=== PATIENT | female | born 2000 | race Caucasian/White ===

== ENCOUNTER 2023-05-27 13:27 | Outpatient (CLI) | payer BC, SELFPAY ==
[2023-05-27 19:34] LABS: Free T4 Free Thyroxine 0.93 ng/mL (0.78-2.19)
== END 2023-05-27 13:28 | disposition home or self-care (01) ==
LOC: ANHGOSHLAB 13:31
PROVIDERS: PCP Emergency Medicine; Visit Provider Nurse Practitioner Family
DX: E03.9 Hypothyroidism, unspecified (principal)
CPT/HCPCS: 36415; 84439; 84443

== ENCOUNTER 2023-12-23 15:48 | Outpatient (CLI) | payer BC, MEDICAID, SELFPAY ==
[2023-12-23 19:42] LABS: Free T4 Free Thyroxine 1.13 ng/mL (0.78-2.19)
[2023-12-23 19:47] LABS: Thyroid Stimulating Hormone 0.811 uIU/mL (0.465-4.680); Total Triiodothyronine (T3) 1.06 NG/ML (0.97-1.69)
[2023-12-26 17:22] LABS: Triiodothyronine T3 Free 3.2 pg/mL (2.3-4.2)
== END 2023-12-23 15:49 | disposition home or self-care (01) ==
LOC: ANHGOSHLAB 15:49
PROVIDERS: PCP Emergency Medicine; Visit Provider Emergency Medicine
DX: E03.9 Hypothyroidism, unspecified (principal)
CPT/HCPCS: 36415; 84439; 84443; 84480; 84481

== ENCOUNTER 2024-03-23 15:14 | Outpatient (CLI) | payer BC, MEDICAID, SELFPAY ==
[2024-03-23 19:46] LABS: Free T4 Free Thyroxine 1.42 ng/mL (0.78-2.19)
[2024-03-23 20:12] LABS: Thyroid Stimulating Hormone 0.412 uIU/mL (0.465-4.680); Total Triiodothyronine (T3) 1.24 NG/ML (0.97-1.69)
== END 2024-03-23 15:15 | disposition home or self-care (01) ==
LOC: ANHGOSHLAB 15:16
PROVIDERS: PCP Emergency Medicine; Visit Provider Emergency Medicine
DX: E03.9 Hypothyroidism, unspecified (principal)
CPT/HCPCS: 36415; 84439; 84443; 84480

== ENCOUNTER 2024-03-30 15:21 | Outpatient (CLI) | payer BC, MEDICAID, SELFPAY ==
--- NOTE | ~2024-03-30 | US_ITS ---
EXAMINATION: US thyroid DATE: 03/30/2024 15:36 INDICATION: Nontoxic goiter, unspecified. TECHNIQUE: Multiple ultrasound images of the thyroid were obtained. COMPARISON: None. FINDINGS: The right thyroid lobe measures 5.1 x 1.1 x 1.2 cm. The left thyroid lobe measures 3.9 x 0.7 x 1.1 c m. There is normal echotexture and echogenicity throughout the thyroid gland. No discrete nodules id entified. Normal vascular flow is present. IMPRESSION: 1. Normal thyroid. Reviewed, dictated and finalized at location A. IMPRESSION: 1. Normal thyroid.
== END 2024-03-30 15:22 ==
LOC: MICIMG 15:22
PROVIDERS: PCP Emergency Medicine; Visit Provider Emergency Medicine
DX: E04.9 Nontoxic goiter, unspecified (principal)
CPT/HCPCS: 76536

== ENCOUNTER 2024-05-04 10:57 | Outpatient (CLI) | payer BC, MEDICAID, SELFPAY ==
[2024-05-04 14:20] LABS: Basophils Absolute Auto 0.1 K/mm3 (0.0-0.1); Basophils Percent Auto 1.3 % (0.2-1.2); Eosinophils Absolute Auto 0.2 K/mm3 (0-0.3); Eosinophils Percent Auto 6.4 % (0-4.4); Hematocrit 39.6 % (37.0-47.0); Hemoglobin 12.9 g/dL (12.0-15.0); Immature Granulocyte Absolute 0.01 K/mm3 (0.00-0.031); Immature Granulocyte Percent A 0.3 % (0-0.5); Lymphocytes Percent Auto 34.6 % (18.3-44.2); Mean Corpuscular HGB Conc 32.6 g/dl (32-36); Mean Corpuscular Hemoglobin 29.2 pg (26-34); Mean Corpuscular Volume 89.6 fl (80-100); Mean Platelet Volume 10.6 fl (7.4-10.4); Monocytes Absolute Auto 0.5 K/mm3 (0.1-0.6); Monocytes Percent Auto 14.4 % (2.6-8.5); Neutrophils Absolute Auto 1.6 K/mm3 (1.3-6.7); Platelet Count Result 231 k/mm3 (150-375); Red Blood Count 4.42 M/mm3 (4.2-5.4); Red Cell Distribution Width 12.5 % (11.5-14.5); White Blood Count 3.8 K/mm3 (4.5-10.0)
[2024-05-04 14:36] LABS: Alanine Aminotransferase 13 U/L (6-35); Albumin Level 4.6 g/dL (3.5-5.1); Alkaline Phosphatase 55 U/L (38-126); Anion Gap 9 mmol/L (4-12); Aspartate Amino Transferase 43 U/L (14-36); Blood Urea Nitrogen 11 mg/dL (7-17); CRP < 0.5 mg/dL (<1.0); Calcium 9.6 mg/dL (8.4-10.2); Carbon Dioxide 30 mmol/L (22-30); Chloride 100 mmol/L (98-107); Estimated Glomerular Filt Rate > 60; Glucose 61 mg/dL (65-110); Potassium 3.9 mmol/L (3.4-5.0); Sodium 139 mmol/L (137-145)
[2024-05-04 15:03] LABS: Erythrocyte Sedimentation Rate 11 mm/hr (0-20)
[2024-05-04 17:31] LABS: Vitamin D 25 Hydroxy 37.7 ng/mL
[2024-05-04 19:11] LABS: Iron 112 ug/dL (37-170)
[2024-05-06 01:13] LABS: Zinc 52 mcg/dL (60-130)
[2024-05-07 09:34] LABS: Thyroid Peroxidase Antibodies <1 IU/mL (<9)
== END 2024-05-04 10:58 | disposition home or self-care (01) ==
LOC: ANHGOSHLAB 10:59
PROVIDERS: PCP Emergency Medicine; Visit Provider Emergency Medicine
DX: K12.0 Recurrent oral aphthae (principal); E03.9 Hypothyroidism, unspecified
CPT/HCPCS: 36415; 80053; 82306; 82607; 82746; 83540; 84630; 85025; 85652; 86038; 86039; 86140; 86376; 86800

== ENCOUNTER 2025-04-08 10:17 | Outpatient (CLI) | payer BC, SELFPAY ==
--- OUTSIDE RECORDS SUMMARY | 2025-04-08 10:23 | XMS_ITS | Encounter Summary ---
Author Organization [facility] Address [address] [place] [address] Care Team Providers Care Grades 1 Thru 6 Visiting Teacher Name Role Phone Unavailable Primary Care Provider Unavailabl e Encounter Details Date Type Department Care Team (Late Contact Info) Description 03/01/2025 Results Follow-Up [facility] BATH ATTENDANT [facility] [address] [address] [place] [address] Yudelka Shearer DO [address] [place], [place] [address] [place] [address] CERV/VAG CYTO AGE BASED SCREEN PAP Social History Tobacco Use Types Packs/Day Years Used Date Smoking Tobacco: Never Smokeless Tobacco: Never Alcohol Use Standard Drinks/Week Comments Never 0 (1 standard drink = 0.6 oz pur e alcohol) Feeling Safe Answer Date Recorded Are you in a relationship wi th someone who hurts you emotionally and/or physically? Unable to obtain 09/15/2023 Comments No Sex and Gender Information Value Date Recorded Sex Assigned at Not on file Legal Sex Female 11:53 AM CDT Gender Identity Not on file Sexual Orientation Not on file documented as of this encounter Plan of Treatment Upcoming Encounters Date Type Department Care Team (Late Contact Info) Description 04/08/2025 10:40 AM CDT Office Visit [facility] BATH ATTENDANT [facility] [address] [address] [place] [address] Tammy Frey NP [address] [facility] [address] [place] [address] 03/03/2026 4:20 PM CDT Office Visit [facility] BATH ATTENDANT [facility] [place] [address] [facility] [address] [place] [address] Yudelka Shearer, [address] [facility] [address] [place] [address] documented as of this encounter Visit Diagnoses Not on filedocumented in this encounter
--- OUTSIDE RECORDS SUMMARY | 2025-04-08 10:23 | XMS_ITS | Clinical Summary ---
Author Organization [facility] Address [address] [place] [address] Care Team Providers Care Behavioral Modification Assistant Name Role Phone Unavailable Primary Care Provider Unavailabl e Source Comments [facility],non-owned Affiliates and Associated Physician Practices is amultiple site organization consisting of ambulatory clinics and hospital sitesin [place], [place], [place] and [place]. This disclosure is being madepursuant to the Care Everywhere program and may not contain all information available regarding this patient. Last updated 18.[facility] [place] Allergies No known active allergies Medications * Be aware that medications may not be up to date on this document. Alwaysverify current medications with the patient. No known medications Immunizations Immunization Administration Dates Next Due DTaP VACCINE IM (6wk-6yrs) 06/03/2006,,05/20/2001,03/17,01/09/2001 HEP B VACCINE, PED/ADOL 08/13/2001,2000, HIB-PRP-OMP 3 DOSE 05/25/2002, 1,03/17/2001,01/09 Human Papilloma Virus Richard valent Vaccine 01/31/2015,09/26/2014,07/26/2014 INFLUENZA VACCINE, QUADR. (F LUZONE; FLULAVAL; FLUARIX; AFLURIA QUADRIVALENT; 6MO+), 0.5 ML (IIV4) 08/17/2015,07/26/2014 MENINGOCOCCAL ACWY (MCV4P) VAC IM 01/31/2012 MENINGOCOCCAL ACWY MENVEO 06/25/2018 MMR 06/03/2006,02/12/2002 PNEUMOCOCCAL PCV7 CONJ, PEDS 02/12/2002, 05/20/2001,03/17/2001,01/09 POLIO IPV 06/03/2006, 2,03/17/2001,01/09 TDAP (7yrs+) 01/31/2012 VARICELLA 01/31/2012,11/17/2001 Social History Tobacco Use Types Packs/Day Years Used Date Smoking Tobacco: Never Assessed Comments No Sex and Gender Information Value Date Recorded Sex Assigned at Not on file Legal Sex Female 12:03 PM CDT Gender Identity Not on file Sexual Orientation Not on file Last Filed Vital Signs Vital Sign Reading Time Taken Comments Blood Pressure 108/70 05/02/2021 11:16 AM CDT Pulse 98 05/02/2021 11:16 AM CDT Temperature 36.7 C (98.1 F) 05/02/2021 11:16 AM CDT Respiratory Rate 16 05/02/2021 11:16 AM CDT Oxygen Saturation 97% 05/02/2021 11:16 AM CDT Inhaled Oxygen Concentration - - Weight 44.5 kg (98 lb) 05/02/2021 11:16 AM CDT Height 157.5 cm (5' 2) 05/02/2021 11:16 AM CDT Body Mass Index 17.92 05/02/2021 11:16 AM CDT Plan of Treatment Health Maintenance Due Date Last Done Comments HIV SCREENING 2015 CHLAMYDIA/GONORRHEA SCREENING 2016 HEPATITIS C SCREENING 11/08/2018 PAP SMEAR 2021 DTAP/TDAP/TD VACCINES (7 - Td or Tdap) 01/30/2022 01/31/2012, 06/03/2006, 05/25/2002, Additional history exists COVID-19 VACCINE ( season) 2024 DEPRESSION SCREENING 09/29/2024 INFLUENZA VACCINE (#1) 2025 08/17/2015, 2013 ZOSTER VACCINE (1 of 2) 2050 HEPATITIS B VACCINE Completed 08/13/2001, 2000, 2000 PNEUMOCOCCAL VACCINE Completed 02/12/2002, 05/20/2001, 03/17/2001, Additional history exists HIB VACCINE Completed 05/25/2002, 04/30, 03/17/2001, Additional history exists HPV VACCINE Completed 01/31/2015, 08/30, 07/26/2014 MENINGOCOCCAL GROUPS A/C/Y/W VACCINE Completed 06/25/2018, 01/31/2012 MENINGOCOCCAL (Group B) VACCINE SHARED DECISION-MAKING Aged Out No longer eligible based on patient's age to complete this topic
--- OUTSIDE RECORDS SUMMARY | 2025-04-08 10:23 | XMS_ITS | Referral Summary ---
Author Organization [facility] [address] Address [address] [place] [id number] Care Team Providers Care Laborer Plumbing Name Role Phone No, Physician Primary Care Provider [phone] Allergies No known active allergies Medications atomoxetine (STRATTERA) 60 mg capsule 25 mg daily 2 Active levothyroxine (SYNTHROID) 50 mcg tablet Take 1 tablet (50 mcg total) by mouth hand sprayer before breakfast 30 tablet 1 3 Active Additional Information Patient taking differently: 25 mcgoral Daily (early AM), Reported on 09/15/2024 al & mag hydroxide with simethicone-dip henhydramine-li docaine (MAGIC MOUTHWASH) suspension 1-1-1 Swish and spit 10 mL every 4 (four) hours as needed (mouth) 250 mL 4 Active Active Problems Problem Noted Date Diagnosed Date Encounter for supervision of normal in first trimester 02/21/2023 Overview (03/25/2023): Dated by 8w6d PNL: O+/I/-/-, NR GC/CT: neg UCx: neg Pap: normal [address] Sinclair per pt, requested today Genetics: declined MOF/MOC: to be addressed at a later visit Hypothyroidism 02/21/2023 Overview (02/27/2023): On levothyroxine 0.025 mg daily. Pt states this is managed by her psychiatrist. TFTs nml with NOB labs. Will continue to monitor throughout . ADHD 02/21/2023 Overview (02/21/2023): Previously on Strattera but discontinued when she discovered she was . Marijuana use 02/21/2023 Overview (02/21/2023): Pt states she discontinued when she discovered she was . S/p counseling and continued cessation encouraged. Vaping nicotine dependence, non-tobacco product 02/21/2023 Overview (02/21/2023): Pt states she discontinued when she discovered she was . S/p counseling and continued cessation encouraged. Social History Tobacco Use Types Packs/Day Years Used Date Smoking Tobacco: Never Smokeless Tobacco: Never Overall Financial Resource Strain (CARDIA) Answe r Date Recorded How hard is it for you to pa y for the very basics like food, housing, medical care, and heating? Somewhat hard 03/25/2023 Hunger Vital Sign Answer Date Recorded Within the past 12 months, y ou worried that your food would run out before you got the money to buy more. Sometimes true Within the past 12 months, t he food you bought just didn't last and you didn't have money to get more. Never true PRAPARE - Transportation Answer Date Re corded In the past 12 months, has l ack of transportation kept you from medical appointments or from getting medications? No 02/28 In the past 12 months, has l ack of transportation kept you from meetings, work, or from getting things needed for daily living? No 03/25/2023 Housing Stability Vital Sign Answer Hussein e Recorded In the last 12 months, was t here a time when you were not able to pay the mortgage or rent on time? Yes 03/25/2023 In the last 12 months, how many places have you lived? 1 03/25/2023 In the last 12 months, was t here a time when you did not have a steady place to sleep or slept in a retirement (including now)? No 03/25/2023 Comments Unknown Sex and Gender Information Value Date Recorded Sex Assigned at Not on file Legal Sex Female 7:19 PM MOTOR VEHICLE LECTURER Gender Identity Not on file Sexual Orientation Not on file Occupation Industry Job Start Date Job End Date Not on file Not on file Not on file Not on file Last Filed Vital Signs Vital Sign Reading Time Taken Comments Blood Pressure 100/60 11/10/2024 3:17 PM MOTOR VEHICLE LECTURER Pulse 106 11/10/2024 3:17 PM MOTOR VEHICLE LECTURER Temperature 36.6 C (97.9 F) 11/10/2024 3:17 PM MOTOR VEHICLE LECTURER Respiratory Rate 20 11/10/2024 3:17 PM MOTOR VEHICLE LECTURER Oxygen Saturation 98% 11/10/2024 3:17 PM MOTOR VEHICLE LECTURER Inhaled Oxygen Concentration - - Weight 42.2 kg (93 lb) 11/10/2024 3:17 PM MOTOR VEHICLE LECTURER Height 157.5 cm (5' 2.01) 10/05/2024 3:00 PM CS T Body Mass Index 17.01 10/05/2024 3:00 PM MOTOR VEHICLE LECTURER Plan of Treatment Not on file Procedures Procedure Name Priority Date/Time Associated Diagnosis Comments HEPATITIS C ANTIBODY Routine 02/21/2023 11:42 AM CDT care, subsequent , first trimester 8 weeks gestation of N. GONORRHOEAE/C. TRACHOMATIS AMPLIFICATION Routine 02/21/2023 11:42 AM CDT Screen for sexually transmitted diseases from Last 3 Months or Most Recently Relevant to Health Maintenance Results * N. gonorrhoeae/C. trachomatis Amplification Endocervical (02/21/2023 11:42 AM CDT) C. trachomatis Not detected Not detected MATT NORRIS N. gonorrhoeae Not detected Not detected MATT NORRIS Comment: Testing performed by the [facility]. This assay detects Chlamydia trachomatis and Neisseria gonorrhoeae by nucleic acid amplification testing (NAAT). This test is approved by the [place] Food and Drug Administration and the performance characteristics have been verified by the laboratory. The performance characteristics of this test have not been evaluated in women or individuals less than 16 years of age. Endocervical (None) 02/22/20 11:42 AM CDT 02/21/2023 6:00 PM CDT Dona Dean DO LAB MICROBIOLOGY - [facility] ORDERABLES Final Result Performing Organization Address City/[facility] Co de Phone Number MATT NORRIS [phone] Department [place] [address] * Hepatitis C antibody (02/21/2023 11:42 AM CDT) Hep C Ab Nonreactive Nonreactive MATT NORRIS Comment: Interpretive Data Nonreactive: Antibodies to HCV not detected. Does NOT exclude the possibility of recent exposure to HCV. Equivocal: Equivocal for HCV antibodies. Supplemental molecular testing will be automatically performed to determine infection status in accordance with current CDC screening recommendations. Reactive: Positive for HCV antibodies. This may represent current or past HCV infection. Supplemental molecular testing will be automatically performed to determine current infection status in accordance with current CDC screening recommendations. Interpretive data was last revised on 2019. Blood 02/21/2023 11:4 2 AM CDT 02/21/2023 6:00 PM CDT [facility] Linda Dean DO LAB MICROBIOLOGY - GENE RAL ORDERABLES Final Result Performing Organization Address City/[facility] Co de Phone Number MATT NORRIS [phone] Department [place] [address] from Last 3 Months or Most Recently Relevant to Health Maintenance Insurance CHOICE [facility] [place] Care Teams Laborer Plumbing Relationship Specialty Start Date End Date No, Physician PCP - General 04/22/22
--- OUTSIDE RECORDS SUMMARY | 2025-04-08 10:23 | XMS_ITS | Clinical Summary ---
Author Organization [facility] [address] Address [address] [place] [id number] Care Team Providers Care Childbirth Educator Name Role Phone No, Physician Primary Care Provider [phone] Allergies No known active allergies Medications atomoxetine (STRATTERA) 60 mg capsule 25 mg daily 2 Active levothyroxine (SYNTHROID) 50 mcg tablet Take 1 tablet (50 mcg total) by mouth carpenter mate before breakfast 30 tablet 1 3 Active [...] . S/p counseling and continued cessation encouraged. Surgical History Surgery Date Site/Laterality Comments WISDOM TOOTH EXTRACTION RHINOPLASTY Medical History Medical History Date Comments Hypothyroidism Adhd Vitamin D deficiency Social History Tobacco Use Types Packs/Day Years [...] place to sleep or slept in a assisted (including now)? No 03/25/2023 Comments Unknown Sex and Gender Information Value Date Recorded Sex Assigned at Not on file Legal Sex Female 7:19 PM DIRECTOR RETIREMENT Gender Identity Not on file Sexual Orientation Not on file Occupation Industry Job Start Date Job End Date Not on file Not on file Not on file Not on file Obstetrics History Para Term AB IAB SAB Ectopic Multiple Livin g Live Births 2 1 Date Outcome GA Total Labor Labor/2nd/3rd Weight Sex Type Anes PTL Josee A1 A5 Name Clin 2021 AB 7w0d Last Filed Vital Signs Vital Sign Reading Time Taken Comments Blood Pressure 100/60 11/10/2024 3:17 PM DIRECTOR RETIREMENT Pulse 106 11/10/2024 3:17 PM DIRECTOR RETIREMENT Temperature 36.6 C (97.9 F) 11/10/2024 3:17 PM DIRECTOR RETIREMENT Respiratory Rate 20 11/10/2024 3:17 PM DIRECTOR RETIREMENT Oxygen Saturation 98% 11/10/2024 3:17 PM DIRECTOR RETIREMENT Inhaled Oxygen Concentration - - Weight 42.2 kg (93 lb) 11/10/2024 3:17 PM DIRECTOR RETIREMENT Height 157.5 cm (5' 2.01) 10/05/2024 3:00 PM CS T Body Mass Index 17.01 10/05/2024 3:00 PM DIRECTOR RETIREMENT Plan of Treatment Health Maintenance Due Date Last Done Comments Cervical Cancer Screening 2000 Depression Screening 2000 Regular Well Visit/Exam 18-64 2018 Chlamydia and Gonorrhea (GC/ CT) Screening 02/22/2024 02/21/2023 Covid-19 Vaccine (2023-10 5 season) 2024 09/27/2021 Influenza Vaccine (Season Ended) 2025 08/06/2023, 08/17/2015, 07/26/2014, Additional history exists DTaP/Tdap/Td Vaccine (8 - Td or Tdap) 08/06/2033 08/06/2023, 01/31/2012, 06/03/2006, Additional history exists Hepatitis B Screening Completed 08/13/2001 , 2000, 2000 Pneumococcal vaccine <65 Completed 002, 05/20/2001, 03/17/2001, Additional history exists Varicella Vaccines Completed 01/31/2012, 11/17/2001 HPV Vaccines Completed 01/31/2015, 08/30, 07/26/2014 Hepatitis C Screening Completed 02/21/2023 Procedures Procedure Name Priority Date/Time Associated Diagnosis [...] C. trachomatis Not detected Not detected MATT N. gonorrhoeae Not detected Not detected MATT NORRIS Comment: Testing performed by the [facility]. This assay detects Chlamydia trachomatis and Neisseria gonorrhoeae by nucleic acid amplification testing (NAAT). This test is approved by the [facility] Food and Drug Administration and the performance characteristics have been verified by the laboratory. The performance characteristics of this test have not been evaluated in women or individuals less than 16 years of age. Endocervical (None) 02/22/20 11:42 AM CDT 02/21/2023 6:00 PM CDT Dona Dean DO LAB MICROBIOLOGY - [facility] ORDERABLES Final Result MATT [address] Department of Laboratories [place], [place] [id number] * Hepatitis C antibody (02/21/2023 11:42 AM CDT) Hep C Ab Nonreactive Nonreactive MATT Comment: Interpretive Data Nonreactive: Antibodies to HCV [...] 2 AM CDT 02/21/2023 6:00 PM CDT Dona Dean DO LAB MICROBIOLOGY - GENE RAL ORDERABLES Final Result Performing Organization Address City/State/ZIP Co tn Phone Number MATT [phone] [facility] Department [place] [address] from Last 3 Months or Most Recently Relevant to Health Maintenance [place] Care Teams Childbirth Educator Relationship Specialty Start Date End Date No, Physician PCP - General 04/22/22
--- OUTSIDE RECORDS SUMMARY | 2025-04-08 10:23 | XMS_ITS | Clinical Summary ---
Author Organization [facility] Address [address] [place] [address] Care Team Providers Care Powerhouse Electrician Apprentice Name Role Phone Unavailable Primary Care Provider Unavailabl e Allergies No known active allergies Medications levothyroxine 50 mcg tablet Take 50 mcg by mouth daily in the morning. Active ergocalciferol , vitamin D2, (VITAMIN D ORAL) 1,000 Int'l Units/mL daily. 3 Active VIT-IRON FUM-FOLIC AC ORAL Take by mouth. Activ e acetaminophen (TYLENOL) 325 mg tablet Take 2 Tablets (650 mg) by mouth every 6 hours. 3 Active Additional Information Patient not taking.Reported on 02/23/2025 ibuprofen (MOTRIN) 600 mg tablet Take 1 Tablet (600 mg) by mouth every 6 hours as needed for Mild Pain. 60 Tablet 09/18/2023 9:07 AM ATTENDANT COIN OPERATED LAUNDRY 3 Active Additional Information Patient not taking.Reported on 02/23/2025 modified lanolin (LANOLIN HFA) 100 % Cream Apply to affected area see administration instructions. 3 Active Additional Information Patient not taking.Reported on 02/23/2025 atomoxetine (STRATTERA) 25 mg capsule 1 Capsule. Active dexAMETHasone (DECADRON) 0.5 mg/5 mL Solution 5 Active Hospital, Clinic, or Other Facility Administered Medication Ordered Dose Route Frequency Start Date End Date Status levonorgestreL (MIRENA) 21 mcg/24hr (up to 8 yrs) 52 mg intrauterine device 1 DeviceIndications: Encounter for IUD insertion 1 Device Intrauterine INTRA-PROCEDURE ONCE 03/11/2025 5 Ended Active Problems Problem Noted Date Diagnosed Date Intact amniotic membranes du ring in third trimester 09/02/2023 Encounters Date Type Department Care Team Description 03/15/2025 External Device Data STL ABSTRACTION Provider, Abstract 03/11/2025 10:10 AM CDT Procedure visit [facility] INFRASTRUCTURE ENGINEER [facility] [address] [address] [place] [address] Eusebio De Leon MD Encounter for IUD insertion (Primary Dx) 03/04/2025 Telephone [facility] Women's Health Clinical Support [address] [place] [phone] Beverly Justice RN Question 03/01/2025 External Device Data STL ABSTRACTION Provider, Abstract 03/01/2025 External Device Data STL ABSTRACTION Provider, Abstract 03/01/2025 Results Follow-Up [facility] INFRASTRUCTURE ENGINEER [facility] [address] [address] [place] [address] Yudelka Shearer DO CERV/VAG CYTO AGE BASED SCREEN PAP 02/23/2025 12:50 PM CDT Office Visit [facility] INFRASTRUCTURE ENGINEER [facility] [address] [address] [place] [address] Yudelka Shearer DO Encounter for gynecological examination without abnormal finding (Primary Dx); Screening for cervical cancer; Screening for HPV (human papillomavirus); Screening for venereal disease (VD) from Last 3 Months Immunizations Immunization Administration Dates Next Due (ABRYSVO)(60 YR UP/GA 32-36 WKS) RSV, BIVALENT, PROTEIN SUBUNIT RSVPREF, DILUENT RECONSTITUTED, 0.5 ML, PF 08/13/2023 (ADACEL/BOOSTRIX)(10 YR UP) TDAP VACCINE, 0.5ML, IM 08/06/2023 INFLUENZA VACCINE QUADRIVALENT 6 MOS UP PF IM Family History Medical History Relation Name Comments Depression Father Fletcher Mental illness Father Fletcher Stroke Maternal Grandfather Edward Asthma Mother Lorena Osteoporosis Mother Lorena Hypertension Paternal Grandmother Lindsay Relation Name Status Comments Father Fletcher Maternal Grandfather Vinny Mother Lorena Alive Paternal Grandmother Lindsay Alive Social History Tobacco Use Types Packs/Day Years Used Date Smoking Tobacco: Never Smokeless Tobacco: Never Tobacco Cessation:Counseling Given: Not Answered Alcohol Use Standard Drinks/Week Comments Never 0 [...] Sign Reading Time Taken Comments Blood Pressure 118/60 03/11/2025 10:20 AM CDT Pulse 74 09/18/2023 7:57 AM ATTENDANT [employer]PER[employer] LAUNDRY Temperature 36.5 C (97.7 F) 09/18/2023 7:57 AM ATTENDANT COIN OPERATED LAUNDRY Respiratory Rate 16 09/18/2023 7:57 AM ATTENDANT COIN OPERATED LAUNDRY Oxygen Saturation 100% 09/16/2023 10:55 AM ATTENDANT COIN OPERATED LAUNDRY Inhaled Oxygen Concentration - - Weight 41.7 kg (92 lb) 03/11/2025 10:20 AM CDT Height 157.5 cm (5' 2) 03/11/2025 10:20 AM CDT Body Mass Index 16.83 03/11/2025 10:20 AM CDT Plan of Treatment Upcoming Encounters Date Type Department Care Team (Late st Contact Info) Description 04/08/2025 10:40 AM CDT Office Visit [facility] INFRASTRUCTURE ENGINEER [facility] [address] [address] [place] [address] Tammy Frey NP [address] [facility] [address] [facility] [place] [address] 03/03/2026 4:20 PM CDT Office Visit [facility] INFRASTRUCTURE ENGINEER [facility] [address] [facility] [address] [place] [address] Yudelka Shearer DO [address] [place] [address] Health Maintenance Due Date Last Done Comments HPV/Cotest (21-29) 2021 INFLUENZA VACCINE (#1) 2025 , 08/17/2015, 07/26/2014 CERVICAL CANCER SCREENING 02/24/2028 PAP SMEAR 02/24/2028 02/23/2025 DTAP/TDAP/TD VACCINES (8 - T d or Tdap) 08/06/2033 08/06/2023, 01/31/2012, 06/03/2006, Additional history exists HEPATITIS B VACCINES Completed 08/13/2001, 2000, 2000 HPV VACCINES Completed 01/31/2015, 08/30, 07/26/2014 Preventative Visit- Commercial Completed 02/23/2025 Procedures Procedure Name Priority Date/Time Associated Diagnosis Comments GA INSERTION INTRAUTERINE DEVICE IUD Routine 03/11/2025 10:10 AM CDT Encounter for IUD insertion CERV/VAG CYTO AGE BASED SCREEN PAP Routine 02/23/2025 1:20 PM CDT Screening for cervical cancer from Last 3 Months Results * GA INSERTION INTRAUTERINE DEVICE IUD (03/11/2025 10:10 AM CDT) Narrative [facility] JAYLYN Perry [address] [address] - 03/11/2025 10:10 AM CDT Eusebio De Leon MD 03/13/2025 9:13 PM IUD Insertion Date/Time: 03/11/2025 10:10 AM Performed by: Eusebio De Leon MD Authorized by: Eusebio De Leon MD Consent: Consent obtained: Verbal and written Consent given by: Patient Procedure risks and benefits discussed: yes Patient questions answered: yes Patient agrees, verbalizes understanding, and wants to proceed: yes Educational handouts given: yes Instructions and paperwork completed: yes Procedure: Pelvic exam performed: yes Negative GC/chlamydia test: yes Negative urine test: no Negative serum test: no Cervix cleaned and prepped: yes Speculum placed in vagina: yes Tenaculum applied to cervix: yes Uterus sounded: yes Uterus sound depth (cm): 8 IUD inserted with no complications: yes IUD type: Mirena Strings trimmed: yes Post-procedure: Patient tolerated procedure well: yes Patient will follow up after next period: yes Comments: The procedure for Mirena IUD insertion explained to patient. Risks and benefits discussed. Questions answered. Consent was obtained. The patient was placed in the dorsolithotomy position. Bimanual examination revealed a normal-sized retroverted uterus. No adnexal masses or tenderness noted. A speculum was placed in the vagina. The cervix was cleansed with Betadine. A single-tooth tenaculum was used to grasp the anterior lip of the cervix. The uterus sounded to 8 cm. The Mirena IUD was inserted in the uterine cavity without difficulty. The applicator was removed. The strings were trimmed to 2 to 3 cm. The tenaculum was removed and the anterior lip of the cervix and hemostasis was noted. The patient tolerated the procedure well. Eusebio De Leon MD PROCEDURE/MINOR SURGICAL ORDERAB LES Final Result Performing Organization Address City/State/[facility] Co de Phone Number [address]# [id number] [address] [place] [address] * CERV/VAG CYTO AGE BASED SCREEN PAP (02/23/2025 1:20 PM CDT) COMMENT (PAP): [facility] Comment: This order for age-based cervical cancer and STI screening follows ACOG guidelines(PB 168, 140, QGW093). See individual assays for performing site location. CLINICAL INFORMATION [facility] Comment:None given LAST MENSTRUAL PERIOD [facility] Comment:NONE GIVEN PREV PAP: [facility] Comment:NONE GIVEN PREV BX: [facility] [place] [facility] Comment:NONE GIVEN SOURCE [facility] [place] [facility] Comment:Endocervix ADEQUACY: [facility] Comment: Satisfactory for evaluation. Endocervical/transformation zone component present. Age and/or menstrual status not provided PAP INTERP [facility] Comment: Cytology Results: Negative for intraepithelial lesion or malignancy. CYTOLOGY INFECTION [facility] [place] [facility] Comment: Fungal organisms morphologically consistent with Beatrice spp. COMMENT (PAP TEST) [facility] Comment: This Pap test has been evaluated with computer assisted technology. [facility]ENSING DIRECTOR: [facility] Comment: TEJA, CT(ASCP) CT screening location: [place] [address] [place] [address] EXPLANATORY NOTE [facility] Comment: EXPLANATORY NOTE: The Pap is a screening test for cervical cancer. It is not a diagnostic test and is subject to false negative and false positive results. It is most reliable when a satisfactory sample, regularly obtained, is submitted with relevant clinical findings and history, and when the Pap result is evaluated along with historic and current clinical information. CHLAMYDIA TRACHOMATIS RNA, TMA, UROGENITAL NOT DETECTED NOT DETECTED [facility] NEISSERIA GONORRHOEAE RNA, TMA, UROGENITAL NOT DETECTED NOT DETECTED [facility] COMMENT INFECTIOUS DISEASE [facility] Comment: The analytical performance characteristics of this assay, when used to test SurePath(TM) specimens have been determined by [facility]. The modifications have not been cleared or approved by the FDA. This assay has been validated pursuant to the CLIA regulations and is used for clinical purposes. For additional information, please refer to https://education.[employer]/faq/ATM916 (This link is being provided for information/ educational purposes only.) Test Performed at: [address] [place] [address] Brandin MIRANDA Genital SWAB OF ENDOCERVIX / Unknown 02/23/2025 1:20 PM CDT 02/24/2025 7:13 PM CDT us Yudelka Shearer DO PATHOLOGY/CYTOLOGY ORDERABLES Final Result [facility] [phone] [address] [place] [address] from Last 3 Months Insurance BCBS BLUE ACCESS/TRUE BLUE PPO RX [employer] Commercial Advance Directives For more information, please contact: [phone] * Full Code (Latest Code Status on File) Date Activated Date Inactivated Comments 09/16/2023 4:51 PM 09/18/2023 5:06 PM * Full Code Date Activated Date Inactivated Comments 09/15/2023 1:10 PM 09/16/2023 4:51 PM * Full Code Date Activated Date Inactivated Comments 09/15/2023 8:17 AM 09/15/2023 1:10 PM * Full Code Date Activated Date Inactivated Comments 09/02/2023 7:41 PM 09/02/2023 11:52 PM
--- OUTSIDE RECORDS SUMMARY | 2025-04-08 10:23 | XMS_ITS | Clinical Summary ---
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 Gender Identity Not on file Sexual Orientation Not on file Plan of Treatment Health Maintenance Due Date Last Done Comments Hepatitis C Virus (HCV) Screening 2000 Meningococcal B Immunization (1 of 2 - Standard) 2016 Pap Smear 2021 Influenza Immunization (#1) 05/30/202407/30, 07/26/2014, 07/22/2013, Additional history exists SARS-COV-2 Immunization ( season) 2024 09/27/2021 Respiratory Syncytial Virus (RSV) Immunization (Adult) (1 - 1-dose 75+ series) 2075 Hepatitis B Immunization Completed 001, 2000, 2000 Pneumococcal Immunization Combined Aged Out 02/12/2002, 05/20/2001, 03/17/2001, Additional history exists No longer eligible based on patient's age to complete this topic DTaP/Tdap/Td Immunization Discontinued 2011, 06/03/2006, 05/25/2002, Additional history exists TdaP Immunization Completed 01/31/2012 Human Papillomavirus (HPV) Immunization Completed 01/31/2015, 09/26/2014, 07/26/2014 Meningococcal Immunization (ACWY) Completed 06/25/2018, 01/31/2012 Rotavirus Immunization Aged Out No lo nger eligible based on patient's age to complete this topic
--- OUTSIDE RECORDS SUMMARY | 2025-04-08 10:23 | XMS_ITS | Patient Health Record ---
Author Organization [facility] Address [address] [place] [address] Care Team Providers Care Rn Pediatric Icu Name Role Phone Sebastián Deal Unavailable [phone] Allergies No Known Allergies Results Component Value Reference Range Notes UDT Reviewed date:07/29/2024 02:59:07 PM Interpretation: Performing Lab: Notes/Report: THC n 0 - 50 ng/ml Cocaine n 0 - 300 ng/ml Amphetamine n 0 - 1000 ng/ml Buprenorphine (BUP) n 0 - 10 ng/ml Secobarbital (Bar) n 0 - 300 ng/ml Oxazepam (BZO) n 0 - 300 ng/ml 0-mefanbtcxc-4,0-aeetryoa-7,3-diphenylpyrrolidine (JOSSE P) n 0 - 300 ng/ml Methamphetamine (MET) n 0 - 1000 ng/ml Methylenedioxymethamphetamine (MDMA) n 0 - 500 ng/ml Morphine (MOP 300/[id number]) n 0 - 300 ng/ml Methadone (MTD) n 0 - 300 ng/ml Phencyclidine (PCP) n 0 - 25 ng/ml Nortriptyline (TCA) n 0 - 1000 ng/ml Oxycodone n 0 - 300 ng/ml x n 0 - 300 ng/ml Test Reviewed date:07/29/2024 02:59:07 PM Interpretation: Performing Lab: Notes/Report: Test urine n 0 - 0 Reason For Referral No Information Medications Medication SIG (Take, Route, Fr equency, Duration) Notes Start Date End Date Status Atomoxetine HCl 25 MG 1 capsule Orally o nce a day; Duration: 90 days Active Immunizations Vaccine Route Administration Date Status Comme nts DTaP Unknown 01/09/2001 Administered DTaP Unknown 03/17/2001 Administered DTaP Unknown 05/20/2001 Administered DTaP Unknown 05/25/2002 Administered DTaP Unknown 06/03/2006 Administered Hep B, adolescent or pediatr ic (11-19), 3 dose schedule Unknown 2000 Administered Hep B, adolescent or pediatr ic (11-19), 3 dose schedule Unknown 2000 Administered Hep B, adolescent or pediatr ic (11-19), 3 dose schedule Unknown 08/13/2001 Administered Hib (PRP-OMP), 3 dose schedule Unknown 01/09/2001 Admin istered Hib (PRP-OMP), 3 dose schedule Unknown 03/17/2001 Admin istered Hib (PRP-OMP), 3 dose schedule Unknown 05/21/2001 Admin istered Hib (PRP-OMP), 3 dose schedule Unknown 05/25/2002 Admin istered HPV (human papillomavirus), quadrivalent, 3 dose schedule Unknown 07/26/2014 Administered HPV (human papillomavirus), quadrivalent, 3 dose schedule Unknown 09/26/2014 Administered HPV (human papillomavirus), quadrivalent, 3 dose schedule Unknown 01/31/2015 Administered Influenza, quadrivalent, spl it, preservative free, 3 years or older Unknown 07/26/2014 Administered Influenza, quadrivalent, spl it, preservative free, 3 years or older Unknown 08/17/2015 Administered Influenza, quadrivalent, spl it, preservative free, 3 years or older Unknown 08/06/2023 Administered IPV Unknown 01/09/2001 Administered IPV Unknown 03/17/2001 Administered IPV Unknown 05/25/2002 Administered IPV Unknown 06/03/2006 Administered Meningococcal MCV4O Unknown 06/25/2018 Administered Meningococcal MCV4P Unknown 01/31/2012 Administered MMR Unknown 02/12/2002 Administered MMR Unknown 06/03/2006 Administered Pfizer Biontech Covid-19 Vac cine 2nd dose Unknown 01/27/2021 Administered Pfizer Biontech Covid-19 Vac cine 2nd dose Unknown 02/27/2021 Administered Pfizer Biontech Covid-19 Vac cine 2nd dose Unknown 09/27/2021 Administered Pneumococcal conjugate PCV 7 Unknown 01/09/2001 Adminis tered Pneumococcal conjugate PCV 7 Unknown 03/17/2001 Adminis tered Pneumococcal conjugate PCV 7 Unknown 05/20/2001 Adminis tered Pneumococcal conjugate PCV 7 Unknown 02/12/2002 Adminis tered Tdap Unknown 01/31/2012 Administered Tdap Unknown 08/06/2023 Administered Varicella Unknown 11/17/2001 Administered Varicella Unknown 01/31/2012 Administered Social History Tobacco Use: Social History Observation Description Date Details (start date - stop date) Never Smoker NA - NA Sex Assigned At : Social History Observation Description Sex Assigned At Female Tobacco Control (Standard) Question Answer Notes Tobacco use: Nonsmoker Problems Problem Type SNOMED Code ICD Code Onset Dates Problem Status W/U Status Risk Notes Problem Moderate recurrent major depression (02422964) Major depressive disorder, recurrent, moderate (F33.1) 01/24/20 Active confirmed Problem Generalized anxiety disorder (04299286) Generalized anxiety disorder (F41.1) 01/24/20 Active confirmed Problem Anxiety disorder (601165775) Other specified anxiety disorders (F41.8) 01/24/20 Active confirmed Problem Attention deficit hyperactivity disorder (185901383) ADHD (attention deficit hyperactivity disorder), combined type (F90.2) Active confirmed Problem Hypothyroidism (60597084) Hypothyroidism (E03.9) 02/28/20 Active confirmed Problem Attention deficit hyperactivity disorder (353322119) ADHD (F90.9) 02/22/20 Active confirmed Vital Signs Heart Rate 97 /min 10/29/2024 Height-cm 157.48 cm 10/29/2024 Blood pressure diastolic 75 mm Hg 10/29/2024 Weight-kg 43.55 kg 10/29/2024 Height 62.00 in 10/29/2024 Blood pressure systolic 112 mm Hg 10/29/2024 Weight 96 lbs 10/29/2024 BMI 17.56 kg/m2 10/29/2024 Encounters Encounter Location Date Provider Diagnosis [facility] [address] [place] [address] 07/29/2024 Sebastián Say Generalized anxiety disorder F41.1 and ADHD (attention deficit hyperactivity disorder), combined type F90.[address] [facility] [address] [place] [address] 10/29/2024 Sebastián Say Generalized anxiety disorder F41.1 and ADHD (attention deficit hyperactivity disorder), combined type F90.[address] [facility] [address] [facility] [address] [place] [address] 10/29/2024 Sebastián Deal Assessments Encounter Date Diagnosis (ICD Code) Assessment Notes Treatment Notes Treatment Clinical Notes Section Notes 07/29/2024 Generalized anxiety disorder (ICD-10 - F41.1) ADHD - Plan: - Continue atomoxetine 25 mg daily. - [facility] - Reassess in 4-5 months if the patient is doing well. Anxiety - Plan: - Continue to monitor anxiety levels. - No changes in treatment at this time. Hypothyroidism - Plan: - Obtain medical records from Dr. Sanchez's office. - Schedule a thyroid test in three months, or sooner if the patient experiences increased concentration issues or lethargy. - Set up an appointment with Dr. Deal one week after the thyroid test to discuss results. Orthostatic hypotension - Plan: - Monitor for any recurrence of orthostatic hypotension symptoms. - Encourage the patient to follow up with primary care for further evaluation and management. follow-up - Plan: - No specific intervention needed at this time. - Encourage routine care and follow-up as needed. ADHD - Plan: - Continue atomoxetine 25 mg daily. - Sent a three-month prescription to [facility]. - Reassess in 4-5 months if the patient is doing well. Anxiety - Plan: - Continue to monitor anxiety levels. - No changes in treatment at this time. Hypothyroidism - Plan: - Obtain medical records from Dr. Sanchez's office. - Schedule a thyroid test in three months, or sooner if the patient experiences increased concentration issues or lethargy. - Set up an appointment with Dr. Deal one week after the thyroid test to discuss results. Orthostatic hypotension - Plan: - Monitor for any recurrence of orthostatic hypotension symptoms. - Encourage the patient to follow up with primary care for further evaluation and management. follow-up - Plan: - No specific intervention needed at this time. - Encourage routine care and follow-up as needed. 07/29/2024 ADHD (attention deficit hyperactivity disorder), combined type (ICD-10 - F90.2) ADHD - Plan: - Continue atomoxetine 25 mg daily. - Sent a three-month prescription to [facility] on [address]. - Reassess in 4-5 months if the patient is doing well. Anxiety - Plan: - Continue to monitor anxiety levels. - No changes in treatment at this time. Hypothyroidism - Plan: - Obtain medical records from Dr. Sanchez's office. - Schedule a thyroid test in three months, or sooner if the patient experiences increased concentration issues or lethargy. - Set up an appointment with Dr. Deal one week after the thyroid test to discuss results. Orthostatic hypotension - Plan: - Monitor for any recurrence of orthostatic hypotension symptoms. - Encourage the patient to follow up with primary care for further evaluation and management. follow-up - Plan: - No specific intervention needed at this time. - Encourage routine care and follow-up as needed. ADHD - Plan: - Continue atomoxetine 25 mg daily. - Sent a three-month prescription to [facility] on [address]. - Reassess in 4-5 months if the patient is doing well. Anxiety - Plan: - Continue to monitor anxiety levels. - No changes in treatment at this time. Hypothyroidism - Plan: - Obtain medical records from Dr. Sanchez's office. - Schedule a thyroid test in three months, or sooner if the patient experiences increased concentration issues or lethargy. - Set up an appointment with Dr. Deal one week after the thyroid test to discuss results. Orthostatic hypotension - Plan: - Monitor for any recurrence of orthostatic hypotension symptoms. - Encourage the patient to follow up with primary care for further evaluation and management. follow-up - Plan: - No specific intervention needed at this time. - Encourage routine care and follow-up as needed. 10/29/2024 Generalized anxiety disorder (ICD-10 - F41.1) 10/29/2024 ADHD (attention deficit hyperactivity disorder), combined type (ICD-10 - F90.2) 10/29/2024 Other ADHD - Assessment: Patient is currently on atomoxetine 25 mg once daily and reports good functioning with no side effects. She has not experienced any major anxiety or depression since the last visit. The patient confirms taking one capsule in the morning. - Plan: - Continue atomoxetine 25 mg once daily. - Schedule a 6-month follow-up appointment. - Send prescription for a 90-day supply with a refill to [facility]. Stress Management - Assessment: Patient is considering seeking therapy to help manage stress related to schoolwork. She is currently attending [employer] and reports having a busy Friday through Friday schedule. - Plan: - Encourage the patient to explore therapy options, such as [facility], which offers flexible hours including Saturdays. - If the patient has difficulty finding a therapist, offer assistance in finding one within our office. Allergies - Assessment: Patient reports taking allergy medication regularly. - Plan: - No changes needed at this time. Continue current allergy medication regimen. Plan Of Treatment Next Appt Details Provider Name:Sebastián Deal , 04/22/2025 01:00:00 PM, [address], [facility] [address], [place], [address], Insurance Providers Payer Name Payer Address Payer Phone Subscriber Number Group Number Insured Name Patient Relationship to Insured Coverage Start Date Coverage End Date [facility] [address] [place] [address] [id number] ERICH ALVAREZ Self - patient is the insured Medicaid-[place] l Medicaid [address] [address] [place] [address] [id number] ERICH ALVAREZ Self - patient is the insured Medical (General) History Medical History History ICD Code Problems: Attention deficit hyperactivit y disorder, combined type Generalized anxiety disorder Hypothyroidism Mixed anxiety and depressive disorder Moderate recurrent major depression Vitamin D deficiency ,
[2025-04-08 11:56] LABS: Hematocrit 41.1 % (37.0-47.0); Hemoglobin 13.2 g/dL (12.0-15.0); Mean Corpuscular HGB Conc 32.1 g/dl (32-36); Mean Corpuscular Hemoglobin 28.2 pg (26-34); Mean Corpuscular Volume 87.8 fl (80-100); Platelet Count Result 237 k/mm3 (150-375); Red Blood Count 4.68 M/mm3 (4.2-5.4); White Blood Count 3.3 K/mm3 (4.5-10.0)
[2025-04-08 12:05] LABS: Alanine Aminotransferase 15 U/L (6-35); Albumin Level 4.6 g/dL (3.5-5.1); Alkaline Phosphatase 50 U/L (38-126); Anion Gap 10 mmol/L (4-12); Aspartate Amino Transferase 47 U/L (14-36); Bilirubin,Total 0.7 mg/dL (0.2-1.3); Blood Urea Nitrogen 6 mg/dL (7-17); Calcium 9.6 mg/dL (8.4-10.2); Carbon Dioxide 26 mmol/L (22-30); Chloride 104 mmol/L (98-107); Estimated Glomerular Filt Rate > 60; Glucose 96 mg/dL (65-110); Potassium 3.8 mmol/L (3.4-5.0); Sodium 140 mmol/L (137-145); Total Protein 7.5 g/dL (6.3-8.2)
[2025-04-08 12:40] LABS: Thyroid Stimulating Hormone 3.960 uIU/mL (0.465-4.680)
[2025-04-08 12:50] LABS: Free T4 Free Thyroxine 1.08 ng/dL (0.78-2.19)
== END 2025-04-08 10:18 | disposition home or self-care (01) ==
LOC: ANHGOSHLAB 10:19
PROVIDERS: PCP Family Medicine; Visit Provider Family Medicine
DX: E03.9 Hypothyroidism, unspecified (principal); Z79.899 Other long term (current) drug therapy
CPT/HCPCS: 36415; 80053; 84439; 84443; 85027

== ENCOUNTER 2025-09-12 22:21 | Emergency (ER) | payer BC, SELFPAY ==
--- OUTSIDE RECORDS SUMMARY | 2025-09-12 22:25 | XMS_ITS | Clinical Summary ---
Author Organization [facility] Address [address] [place] [address] Care Team Providers Care Farm Mortgage Agent Name Role Phone Unavailable Primary Care Provider Unavailabl e Source Comments [facility],non-owned Affiliates and Associated Physician Practices is amultiple site organization consisting of ambulatory clinics and hospital sitesin [place], [place], [place] and [place]. This disclosure is being madepursuant to the Care Everywhere program and may not contain all information available regarding this patient. Last updated 18.[facility] [place] Allergies No known active allergies Medications * [...] 01/30/2022 01/31/2012, 06/03/2006, 05/25/2002, Additional history exists DEPRESSION SCREENING 09/29/2024 COVID-19 VACCINE ( season) 2025 INFLUENZA VACCINE (#1) 2025 08/17/2015, 2013 ZOSTER [...]
--- OUTSIDE RECORDS SUMMARY | 2025-09-12 22:25 | XMS_ITS | Clinical Summary ---
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
--- OUTSIDE RECORDS SUMMARY | 2025-09-12 22:25 | XMS_ITS | Clinical Summary ---
Author Organization [facility] [address] Address [address] [place] [phone] Care Team Providers Care Cmo Name Role Phone Sharmaine Miguel DO Primary Care Provider [phone] Allergies No known active allergies Medications atomoxetine (STRATTERA) 60 mg capsule 25 mg daily 2 Active levothyroxine (SYNTHROID) 50 mcg tablet Take 1 tablet (50 mcg total) by mouth model and mold maker before breakfast 30 tablet 1 3 Active Additional Information Patient taking differently: 25 mcgoral Daily (early AM), Reported on 09/15/2024 benzonatate (TESSALON) 200 mg capsuleIndicati ons:Nasopharyng itis acute Take 1 capsule (200 mg total) by mouth 3 (three) times a day as needed for cough 30 capsule 5 Active lidocaine viscous (XYLOCAINE) 2 % solutionIndicat ions:Nasopharyn gitis acute Gargle and spit 5 mls every six hours as needed for discomfort. Do not exceed maximum dose of of 4 times daily. 100 mL 5 Active Active Problems Problem Noted Date Diagnosed [...] . S/p counseling and continued cessation encouraged. Encounters Date Type Department Care Team Description 07/22/2025 4:45 PM CDT Office Visit [facility] at [address] [phone] Lissett Mendoza NP Acute non-recurrent pansinusitis (Primary Dx) 07/18/2025 Telephone [facility] [address] [address] Khadijah Fulton LPN 07/14/2025 Results Follow-Up [facility] [address] [phone] Eliana Price NP Throat culture Throat 07/13/2025 6:39 PM CDT - 07/13/2025 11:59 PM CDT Hospital Encounter [address] [address] Nasopharyngitis acute Discharge Disposition: Discharge to home or self care 07/13/2025 4:45 PM CDT Office Visit [facility] [address] [address] Trower, Lissett M., REFRACTIVE SURGEON Nasopharyngitis acute (Primary Dx) from Last 3 Months Surgical History Surgery Date Site/Laterality Comments WISDOM [...] place to sleep or slept in a halfway (including now)? No 03/25/2023 Comments Unknown Sex and Gender Information Value Date Recorded Sex Assigned at Not on file Legal Sex Female 7:19 PM DIRECTOR OF STUDENT FINANCIAL SERVICES Gender Identity Not on file Sexual Orientation [...] Sign Reading Time Taken Comments Blood Pressure 117/74 07/22/2025 4:49 PM CDT Pulse 105 07/22/2025 4:49 PM CDT Temperature 36.8 C (98.2 F) 07/22/2025 4:49 PM CDT Respiratory Rate 20 07/22/2025 4:49 PM CDT Oxygen Saturation 99% 07/22/2025 4:49 PM CDT Inhaled Oxygen Concentration - - Weight 43.5 kg (96 lb) 07/22/2025 4:49 PM CDT Height 157.5 cm (5' 2.01) 10/05/2024 3:00 PM CS T Body Mass Index 17.55 10/05/2024 3:00 PM DIRECTOR OF STUDENT FINANCIAL SERVICES Plan of Treatment Health Maintenance Due Date Last Done Comments Cervical Cancer Screening 2000 Depression Screening 2000 Regular Well Visit/Exam 18-64 2018 Chlamydia and Gonorrhea (GC/ CT) Screening 02/22/2024 02/21/2023 Covid-19 Vaccine (2024-10 6 season) 2025 09/27/2021, 02/27/2021, 01/27/2021 Influenza Vaccine (#1) 2025 , 08/17/2015, 07/26/2014, Additional history exists DTaP/Tdap/Td Vaccine (8 - Td or Tdap) 08/06/2033 08/06/2023, 01/31/2012, 06/03/2006, Additional history exists Hepatitis B Screening Completed 08/13/2001 , 2000, 2000 Pneumococcal vaccine <65 Completed 002, 05/20/2001, 03/17/2001, Additional history exists Varicella Vaccines Completed 01/31/2012, 11/17/2001 HPV Vaccines Completed 01/31/2015, 08/30, 07/26/2014 Hepatitis C Screening Completed 02/21/2023 Procedures Procedure Name Priority Date/Time Associated Diagnosis Comments THROAT CULTURE Routine 07/13/2025 6:39 PM CDT Nasopharyngitis acute POC INFLUENZA A/B, COVID-19 ANTIGEN Routine 07/13/2025 5:10 PM CDT Nasopharyngitis acute POCT RAPID STREP Routine 07/13/2025 5:10 PM CDT Nasopharyngitis acute HEPATITIS C ANTIBODY Routine 02/21/2023 11:42 AM CDT care, subsequent , first trimester 8 weeks gestation of N. GONORRHOEAE/C. TRACHOMATIS AMPLIFICATION Routine 02/21/2023 11:42 AM CDT Screen for sexually transmitted diseases from Last 3 Months or Most Recently Relevant to Health Maintenance Results * Throat culture Throat (07/13/2025 6:39 PM CDT) Report Final Report: No growth of pathogens. Comment:Testing performed by : [facility], [address] [place]., [address] Throat 07/13/2025 6:39 PM CDT 07/14/2025 12:45 AM CDT Narrative MATT Cameron 07/14/2025 7:33 PM CDT Testing performed by [facility] Microbiology Laboratory ([phone]). Lissett Mendoza NP LAB MICROBIOLOGY - GENERAL ORD ERABLES Final Result MATT [address] [place] [address] * POC Influenza A/B, COVID-19 antigen (07/13/2025 5:10 PM CDT) Influenza A Ag, POC Negative Negative [facility] CC EDW Influenza B Ag, POC Negative Negative [facility] COVID-19 Ag POC Presumptive Negative Presumptive Negative, Invalid [facility]W Swab 07/13/2025 5:10 PM CDT [facility] POINT OF CARE TEST ORDER JANETTE Final Result [facility] ED[facility] [address] [place] [address] * POCT rapid strep A (07/13/2025 5:10 PM CDT) [facility] [address] Rapid Strep A, POC Negative Negative Swab 07/13/2025 5:10 PM CDT [facility] POINT OF CARE TEST ORDER JANETTE Final Result * N. gonorrhoeae/C. trachomatis Amplification Endocervical (02/21/2023 11:42 AM CDT) [facility] [address] C. trachomatis Not detected Not detected [facility] N. gonorrhoeae Not detected Not detected MATT Comment: Testing performed by the [facility]. This assay detects Chlamydia trachomatis and Neisseria gonorrhoeae by nucleic acid amplification testing (NAAT). This test is approved by the [facility] Food and Drug Administration and the performance characteristics have been verified by the laboratory. The performance characteristics of this test have not been evaluated in women or individuals less than 16 years of age. Endocervical (None) 02/22/20 11:42 AM CDT 02/21/2023 6:00 PM CDT Dona Dean DO LAB MICROBIOLOGY - GENE RAL ORDERABLES Final Result MATT [address] [facility] Department [place] [address] * Hepatitis C antibody (02/21/2023 11:42 AM CDT) [facility] [address] Hep C Ab Nonreactive Nonreactive MATT Comment: [...] MICROBIOLOGY - GENE [place] [address] [address] Department [place] [address] from Last 3 Months or Most Recently Relevant to Health Maintenance [place] Care Teams Cmo Relationship Specialty Start Date End Date Sharmaine Miguel DO [facility] [facility] [address] [address] PCP - General Family Medicine 07/13/25
--- OUTSIDE RECORDS SUMMARY | 2025-09-12 22:25 | XMS_ITS | Patient Health Record ---
Author Organization [facility] Address [address] [place] [address] Care Team Providers Care Freight Brakeman Name Role Phone Sebastián Deal Unavailable [phone] Allergies No Known Allergies Reason For Referral No Information Medications Medication SIG (Take, Route, Frequency, Duration) Notes Start Date End Date Status Atomoxetine HCl 25 MG Capsule 1 capsule Orally once a day; Duration: 90 days 06/10/2025 Active Immunizations Vaccine Route Administration Date Status [...] History Observation Description Sex Assigned At Female Social History Miscellaneous: Social Info Question Answer Notes Advance Care Planning Are you your own decision-maker Yes Do you have Power of Hose Stripper for Health or [facility]? No Safety issues: Are there any firearms in the house? No Social History Social Info Question Answer Notes Household: Marital Status: Number of Adults in household: 2 Number of Children in Household: 1 Level of Education: Not Finished College Drug/Alcohol: Social Info Question Answer Notes Drugs Have you used drugs other than those for medical reasons in the past 12 months? No AUDIT-C (Standard) Did you have a drink containing alcohol in the past year? Yes How often did you have six or more drinks on one occasion in the past year? Never (0 point) How many drinks did you have on a typical day when you were drinking in the past year? 1 or 2 drinks (0 point) How often did you have a drink containing alcohol in the past year? 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 Living situation: Has A Baby Problems Problem Type SNOMED Code ICD Code Onset Dates Problem Status W/U Status Risk Notes Problem Moderate recurrent major depression (74626382) Major depressive disorder, recurrent, moderate (F33.1) 01/24/20 Active confirmed Problem Generalized anxiety disorder (17046483) Generalized anxiety disorder (F41.1) 01/24/20 Active confirmed Problem Anxiety disorder (107386759) Other specified anxiety disorders (F41.8) 01/24/20 Active confirmed Problem Attention deficit hyperactivity disorder (008754162) ADHD (attention deficit hyperactivity disorder), combined type (F90.2) Active confirmed Problem Hypothyroidism (50694759) Hypothyroidism (E03.9) 02/28/20 Active confirmed Problem Attention deficit hyperactivity disorder (392424911) ADHD (F90.9) 02/22/20 Active confirmed Vital Signs Heart Rate 105 /min 04/22/2025 Height-cm 157.48 cm 04/22/2025 Blood pressure diastolic 76 mm Hg 04/22/2025 Weight-kg 44 kg 04/22/2025 Height 62.00 in 04/22/2025 Blood pressure systolic 112 mm Hg 04/22/2025 Weight 97 lbs 04/22/2025 BMI 17.74 kg/m2 04/22/2025 Encounters Encounter Location Date Provider Diagnosis [facility] [address] [address] 10/29/2024 Sebastiánharini Deal Generalized anxiety disorder F41.1 and ADHD (attention deficit hyperactivity disorder), combined type F90.2 [facility] [address] [facility] [address] [place] [address] 04/22/2025 Sebastiányosi Deal ADHD (attention defi cit hyperactivity disorder), combined type F90.2 [facility] [facility] [address] [facility] [address] [place] [address] 06/10/2025 Sebastián Deal ADHD (attention defi cit hyperactivity disorder), combined type F90.2 [facility] [employer] [address] [address] 10/29/2024 Sebastián Deal Assessments Encounter Date Diagnosis (ICD Code) Assessment Notes Treatment Notes Treatment Clinical Notes Section Notes 06/10/2025 ADHD (attention deficit hyperactivity disorder), combined type (ICD-10 - F90.2) Symptoms include procrastination, focus and concentration issues, and stress related to demanding schoolwork. Condition is currently managed with Atomoxetine 25 mg, with patient reporting stability and adequate functioning. Patient expressed concerns about increasing medication dose due to potential side effects such as hyperfixation and tunnel vision. Patient balances multiple responsibilities as a student and mother, and prefers physical tasks over reading assignments. - Continue Atomoxetine 25 mg as current regimen. - Offer option to increase Atomoxetine to 40 mg if patient decides, with instructions to message provider for dose adjustment. - Schedule follow-up appointment in 5 months, with flexibility to see sooner if medication dose is increased. 04/22/2025 ADHD (attention deficit hyperactivity disorder), combined type (ICD-10 - F90.2) Patient reports stable concentration and good response to current 25 mg morning dose. Expressed curiosity about increasing dose to 40 mg but concerned about fatigue and sleep disruption. 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 - Continue current 25 mg tablet in the morning. - Discussed option to increase dose to 40 mg if needed as school workload increases. - Advised patient to experiment with timing (e.g., 4-6 PM) if fatigue occurs, and to contact provider if struggling with concentration. - Scheduled follow-up in 2 months to reassess medication needs after school starts. 10/29/2024 Generalized anxiety disorder (ICD-10 - F41.1) [...] a 90-day supply with a refill to [facility] in [place]. Stress Management - Assessment: Patient is considering seeking therapy to help manage stress related to schoolwork. She is currently attending [employer] and reports having a busy Friday through Friday schedule. - Plan: - Encourage the patient to explore therapy options, such as [facility], which offers flexible hours including Saturdays. - If the patient has difficulty finding a therapist, offer assistance in finding one within our office. Allergies - Assessment: Patient reports taking allergy medication regularly. - Plan: - No changes needed at this time. Continue current allergy medication regimen. 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 Attention Deficit Hyperactivity Disorder (ADHD) Assessment: Patient reports good response to current Atomoxetine 25 mg daily dosage. She gauges medication effectiveness based on her ability to concentrate in class. Currently taking one summer class and managing well. 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 Previously experienced fatigue and lethargy with higher doses. Takes medication in the morning, as evening dosing did not work well for her. Plan: - Continue Atomoxetine 25 mg PO daily in the morning - Patient to self-monitor ADHD symptoms, particularly concentration, when fall begins on May 23 - If struggling with symptoms, patient instructed to contact provider for potential dose increase - Option to trial Atomoxetine 50 mg daily (two 25 mg tablets) for a few days to assess tolerability if needed - Follow-up options discussed: - Message provider if struggling with symptoms - Potential dose increase to 40 mg or 60 mg based on tolerability of 50 mg trial - Prescription: 90-day supply with one refill Plan Of Treatment Next Appt Details Provider Name:Sebastián Deal , 11/04/2025 04:45:00 PM, [address] [facility] [facility] [facility] [address], [place], [address], Insurance Providers Payer Name Payer Address Payer Phone Subscriber Number Group Number Insured Name Patient Relationship to Insured Coverage Start Date Coverage End Date [facility] [address] [place] [address] [id number] ERICH ALVAREZ Self - patient is the insured Medicaid-[place] l Medicaid [address] [address] [place] [address] [id number] ERICH ALVAREZ Self - patient is the insured Medical (General) History Medical History History ICD Code Problems: Attention deficit hyperactivit y disorder, combined type Generalized anxiety disorder Hypothyroidism Mixed anxiety and depressive disorder Moderate recurrent major depression Vitamin D deficiency , Past Psychiatric History: Anxiety Disord er,PTSD abdominal aortic aneurysm: No atrial fibrillation: No chronic fatigue syndrome: No essential tremor: No hyperlipidemia: No hypertension: No Parkinson's disease: No restless leg syndrome: No stroke: No subdural hematoma: No type 1 diabetes mellitus: No type 2 diabetes mellitus: No vitamin B12 deficiency: No vitamin D deficiency: Yes Attention-deficit hyperactivity disorder
--- OUTSIDE RECORDS SUMMARY | 2025-09-12 22:25 | XMS_ITS | Encounter Summary ---
Author Organization [facility] Healthcare Address [address] [place] [address] Care Team Providers Care Insurance Processing Clerk Name Role Phone Sharmaine Miguel DO Primary Care Provider [phone] Encounter Details Date Type Department Care Team ([facility] st Contact Info) Description 07/14/2025 Results Follow-Up [facility] [address] [place] [address] Eliana Price, [address] [facility] [address] [place] [address] Throat culture Throat Social History Tobacco Use Types Packs/Day Years [...] place to sleep or slept in a intermediate (including now)? 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
[2025-09-12 23:04] VITALS: BP 100/65; PULSE 90; RESP 18; TEMP 36.6; O2SAT 99
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
[2025-09-13] MEDS: DACRIOSE EYE IRRIGATION 118 ML BOTTLE (02:10)
[2025-09-13] MEDS: NEOMYCIN/POLYMYXIN/BACITRACIN OPHTH OINTMENT 3.5 GM TUBE 1 APPLIC EACH EYE (03:10)
[2025-09-13 05:13] VITALS: BP 112/75; PULSE 81; RESP 16; TEMP 36.4; O2SAT 99
== END 2025-09-13 03:12 | disposition home or self-care (01) ==
PROVIDERS: Emergency Provider Registered Nurse; PCP Family Medicine
DX: S05.02XA Injury of conjunctiva and corneal abrasion without foreign body, left eye, initial encounter (principal); W51.XXXA Accidental striking against or bumped into by another person, initial encounter
CPT/HCPCS: 99283; A9270